=== PATIENT | male | born 1970 | race African-American/Black ===

== ENCOUNTER 2018-05-30 11:06 | Emergency (ER) | payer MEDICAID, OTHER ==
[~2018-05-30] VITALS: Ht 180.3 cm; Wt 73.0 kg
[2018-05-30] MEDS ORDERED: BACITRACIN ZINC OINT UDPKT TOP ONE (12:00)
[2018-05-30 12:29] VITALS: BP 135/85
== END 2018-05-30 12:30 | disposition home or self-care (01) ==
LOC: ER 11:06
DX: S61.412A Laceration without foreign body of left hand, initial encounter (principal); F17.200 Nicotine dependence, unspecified, uncomplicated; W45.8XXA Other foreign body or object entering through skin, initial encounter; Y93.89 Activity, other specified; Y92.89 Other specified places as the place of occurrence of the external cause; Y99.8 Other external cause status; Z98.890 Other specified postprocedural states
CPT/HCPCS: 99283